=== PATIENT | male | born 1995 | race African-American/Black ===

== ENCOUNTER 2018-08-18 05:16 | Emergency (ER) | payer OTHER ==
[~2018-08-18] VITALS: Ht 182.9 cm; Wt 79.5 kg
[2018-08-18 05:24] VITALS: TEMP 97.1
[2018-08-18] MEDS ORDERED: FLEXERIL 1010 MG/TAB PO (05:52)
[2018-08-18 06:50] VITALS: BP 108/76; PULSE 60
== END 2018-08-18 07:00 | disposition home or self-care (01) ==
LOC: COL.ER 05:16
DX: S39.012A Strain of muscle, fascia and tendon of lower back, initial encounter (principal); S80.12XA Contusion of left lower leg, initial encounter; V43.52XA Car driver injured in collision with other type car in traffic accident, initial encounter; W22.11XA Striking against or struck by driver side automobile airbag, initial encounter

== ENCOUNTER → 2018-09-25 | Outpatient (CLI) | payer OTHER ==
[~2018-09-25] MED LIST: FLEXERIL 1010 MG/TAB PO
== END ==
LOC: COL.RAD 12:27
DX: M25.562 Pain in left knee (principal); M25.561 Pain in right knee

== ENCOUNTER → 2018-09-28 | Outpatient (CLI) | payer OTHER | LOC: COL.RAD 13:48 | DX: M51.36 Other intervertebral disc degeneration, lumbar region (principal) ==